=== PATIENT | female | born 1990 | race Caucasian/White ===

== ENCOUNTER 2017-02-14 00:33 | Emergency (ER) | payer OTHER ==
[2017-02-14 01:26] LABS: BASOPHILS 0.1 % (0-2); EOSINOPHILS 2.3 % (0-7); HEMATOCRIT 39.3 % (36.0-48.0); HEMOGLOBIN 13.4 g/dL (12-16); IMMATURE GRANULOCYTES 0.2 % (0-5); LYMPHOCYTES 30.3 % (15-50); MCH 29.5 pg (26.0-34.0); MCHC 34.1 g/dL (31.0-37.0); MCV 86.4 fL (80.0-100.0); MEAN PLATELET VOLUME 9.7 fL (7.4-10.4); MONOCYTES 8.2 % (2-11); NEUTROPHILS 58.9 % (40-80); PLATELET COUNT 261 10x3/uL (130-400); RBC 4.55 10x6/uL (4.00-5.40); RDW 12.2 % (11.5-14.5); WBC 9.8 10x3/uL (4.8-10.8)
[2017-02-14 01:43] LABS: ALBUMIN 3.4 g/dL (3.4-5.0); ALKALINE PHOSPHATASE 81 U/L (46-116); ALT (SGPT) 29 U/L (10-68); BILIRUBIN - TOTAL 0.23 mg/dL (0.2-1.3); CALC OSMOLALITY 270 mosm/kg (275-300); CALCIUM 8.7 mg/dL (8.5-10.1); CARBON DIOXIDE 26.9 mmol/L (21.0-32.0); CHLORIDE - SERUM 102 mmol/L (98-107); GLUCOSE 94 mg/dL (74-106); POTASSIUM - SERUM 3.8 mmol/L (3.5-5.1); PROTEIN - SERUM 7.8 g/dL (6.4-8.2); SODIUM 136 mmol/L (136-145); UREA NITROGEN 10 mg/dL (7-18); eGFR NON AFRICAN AMERICAN 72 mL/min (90-120)
[2017-02-14 01:45] LABS: AMYLASE - SERUM 26 U/L (25-115); LIPASE 111 U/L (73-393)
[2017-02-14 01:53] LABS: TROPONIN-I < 0.017 ng/mL (0.000-0.060)
== END 2017-02-14 02:17 | disposition home or self-care (01) ==
LOC: D.ER 00:33
PROVIDERS: Family Medicine
DX: R07.89 Other chest pain (principal)